=== PATIENT | male | born 1990 | race African-American/Black ===

== ENCOUNTER 2016-11-16 11:47 | Emergency (ER) | payer OTHER ==
[2016-11-16 11:54] VITALS: TEMP 97.8; BMI 29.7
[2016-11-16] MEDS ORDERED: ACETAMINOPHEN 1000 MG/100 ML VIAL (NON FORMULARY) IVPB ONE (13:03)
[2016-11-16] MEDS ORDERED: ACETAMINOPHEN INJECTION 100 ML IVPB ONE (13:07)
[2016-11-16 13:39] LABS: BASOPHIL 0.4 % (0-2.0); EOSINOPHIL 0.4 % (0-4.5); MCHC 32.1 g/dl (32.0-35.9); MEAN CELL VOLUME 84.1 fl (80-96); MEAN PLT VOLUME 9.3 fl (7.5-11.1); NEUTROPHILS 62.6 % (42.8-82.8); PLATELET COUNT 173 K/MM3 (134-434); RDW 14.3 % (11.9-15.9); WHITE BLOOD COUNT 9.4 K/mm3 (4.0-10.0)
[2016-11-16 13:41] LABS: URINE APPEARANCE SLCLOUDY; URINE BILIRUBIN NEGATIVE (NEGATIVE); URINE BLOOD 3+ (NEGATIVE); URINE COLOR YELLOW; URINE GLUCOSE (UA) NEGATIVE (NEGATIVE); URINE KETONE NEGATIVE (NEGATIVE); URINE LEUK ESTERASE TRACE (NEGATIVE); URINE NITRITE NEGATIVE (NEGATIVE); URINE PROTEIN NEGATIVE (NEGATIVE); URINE UROBILINOGEN NEGATIVE mg/dL (0.2-1.0)
[2016-11-16 13:52] LABS: INR 1.12 (0.82-1.09); PROTHROMBIN TIME (PATIENT) 12.3 SEC (9.98-11.88)
--- NOTE | 2016-11-16 13:53 | PDOC ---
History of Present Illness - General Chief Complaint: Hematuria Stated Complaint: FALL/ BACK PAIN, BLOOD IN URINE Time Seen by Provider: 11/16/16 12:24 History Source: Patient Exam Limitations: No Limitations - History of Present Illness Travel History: No Initial Comments: 11/16/16 13:56 26 y/o male presents to the ED with complaints of left flank pain. Patient states fell down steps onto the basement floor yesterday evening landing on his back. Patient states also scraped his right arm which brought him to a nearby ER yesterday we'll address the arm but since he had no complaints of back pain or hematuria there was no evaluation for the above. Patient states pain began this morning and passed dark urine this morning concerning for injury. Patient denies history of renal colic, passing of clots, penile discomfort, penile discharge, abdominal pain, nausea, or weakness. Timing/Duration: reports: constant Quality: reports: mild, dullness Abdominal Pain Onset Location: reports: flank (left) Pain Radiation: reports: no radiation Activities at Onset: reports: none Aggravating Factors: improves with: Movement Alleviating Factors: improves with: None Past History - Travel Traveled outside of the country in the last 30 days: No Close contact w/someone who was outside of country & ill: No - Past Medical History Allergies/Adverse Reactions: Allergies Allergy/AdvReac Type Severity Reaction Status Date / Time No Known Allergies Allergy Verified 11/16/16 11:49 Home Medications: Ambulatory Orders Fluticasone Prop 0.05% Nasal [Flonase -] 1 spray NS BID #1 spray.pump 10/15/15 Other medical history: none - Surgical History Abdominal Surgery: Yes (HERNIA) - Suicide/Smoking/Psychosocial Hx Smoking History: Current every day smoker Have you smoked in the past 12 months: Yes Number of Cigarettes Smoked Daily: 2 Information on smoking cessation initiated: Yes 'Breaking Loose' booklet given: 11/16/16 Hx Alcohol Use: No Drug/Substance Use Hx: No Substance Use Type: Marijuana Patient Lives Alone: No Lives with/in: spouse/SO Review of Systems - Review of Systems Able to Perform ROS?: Yes Constitutional: No: Symptoms Reported Respiratory: No: Symptoms reported Cardiac (ROS): No: Symptoms Reported ABD/GI: No: Symptoms Reported : Yes: Flank Pain, Hematuria Musculoskeletal: Yes: Back Pain Integumentary: Yes: Other (abrasion to right forearm) Neurological: No: Symptoms reported Hematologic/Lymphatic: No: Symptoms Reported *Physical Exam - Vital Signs Last Vital Signs Temp Pulse Resp BP Pulse Ox 97.8 F 95 H 18 103/74 100 11/16/16 11:51 11/16/16 11:51 11/16/16 11:51 11/16/16 11:51 11/16/16 11:51 - Physical Exam General Appearance: Yes: Nourished, Appropriately Dressed. No: Apparent Distress HEENT: negative: Pale Conjunctivae Neck: positive: Supple. negative: Tender, Decreased range of motion Respiratory/Chest: positive: Lungs Clear, Normal Breath Sounds. negative: Chest Tender, Respiratory Distress, Accessory Muscle Use Cardiovascular: positive: Regular Rhythm, Regular Rate. negative: Murmur Gastrointestinal/Abdominal: positive: Normal Bowel Sounds, Soft. negative: Distended, Tenderness Male Genitalia: positive: normal genitalia Musculoskeletal: positive: CVA Tenderness (L) (left flank) Extremity: positive: Normal Capillary Refill, Normal Range of Motion. negative : Normal Inspection (noted superficial abrasion over the lateral aspect of right forearm) Integumentary: positive: Other Neurologic: positive: Motor Strength 5/5 (ambulatory) ED Treatment Course - LABORATORY CBC & Chemistry Diagram: 11/16/16 13:30 11/16/16 13:30 - RADIOLOGY Radiology Studies Ordered: Category Date Time Status KIDNEY / RENAL US [US] Stat Ultrasound 11/16/16 13:03 Ordered - Medications Given in the ED: ED Medications Discontinued Medications Generic Name Dose Route Start Last Admin Trade Name Freq PRN Reason Stop Dose Admin Acetaminophen 1,000 mg 11/16/16 13:03 11/16/16 13:29 Ofirmev Injection - IVPB 11/16/16 13:04 1,000 mg ONCE ONE Administration Medical Decision Making - Medical Decision Making 11/16/16 13:06 Patient status post fall landing on his back yesterday now complaining of flank pain along with hematuria. Patient's exam had mild left flank tenderness along with left CVA tenderness. Patient was ordered for labs including CBC, comp urine , urine culture and ultrasound of the kidney. 11/16/16 14:06 Laboratory Tests 11/16/16 11/16/16 11/16/16 13:30 13:30 13:30 WBC 9.4 RBC 5.65 H Hgb 15.3 Hct 47.5 Plt Count 173 PT with INR 12.30 H BUN 14 Creatinine 0.9 AST 12 L ALT 19 Urine Blood Urine Urobilinogen Urine RBC Urine WBC 11/16/16 13:30 WBC RBC Hgb Hct Plt Count PT with INR BUN Creatinine AST ALT Urine Blood 3+ H Urine Urobilinogen Negative Urine RBC 43 Urine WBC 11 11/16/16 15:08 Ultrasound shows no acute findings with normal flow to the right and left renal vein. patient ordered for abdominal pelvic CT with IV contrast. Wound redressed to right forearm 11/16/16 16:32 CT shows no evidence of renal injury. Patient will be discharged home with supportive care instructions. *DC/Admit/Observation/Transfer Diagnosis at time of Disposition: Back pain Qualifiers: Chronicity: acute Back pain laterality: left Sciatica presence: without sciatica Hematuria Qualifiers: Hematuria type: unspecified type Qualified Code(s): R31.9 - Hematuria, unspecified - Discharge Dispostion Disposition: HOME Condition at time of disposition: Good - Patient Instructions Printed Discharge Instructions: DI for Hematuria Additional Instructions: May take Tylenol for discomfort. Drink plenty of fluids. If symptoms worsen please return to the nurse ED. Otherwise follow up with the primary care physician.
[2016-11-16 13:55] LABS: URINE HYALINE CAST 1 /lpf; URINE MUCUS RARE; URINE RBC 43 /hpf (0-3); URINE WBC 11 /hpf (3-5)
[2016-11-16 14:02] LABS: ALBUMIN 3.8 g/dl (3.4-5.0); ANION GAP 9 (8-16); BILIRUBIN,TOTAL 0.6 mg/dL (0.2-1.0); CALCIUM 8.9 mg/dL (8.5-10.1); CO2 27 mmol/L (21-32); CREATININE 0.9 mg/dL (0.7-1.3); GLUCOSE,RANDOM 89 mg/dL (74-106); SGOT/AST 12 U/L (15-37); SGPT/ALT 19 U/L (12-78); TOT PROT 6.5 g/dl (6.4-8.2)
[2016-11-16 14:03] LABS: ALK PHOS 75 U/L (45-117)
[2016-11-16 16:44] VITALS: BP 123/76; PULSE 77
== END 2016-11-16 16:44 | disposition home or self-care (01) ==
LOC: JER 11:47
DX: M54.5 Low back pain (principal); R31.9 Hematuria, unspecified; F17.210 Nicotine dependence, cigarettes, uncomplicated; S50.811A Abrasion of right forearm, initial encounter; W10.8XXA Fall (on) (from) other stairs and steps, initial encounter; Y93.89 Activity, other specified; Y92.018 Other place in single-family (private) house as the place of occurrence of the external cause; Y99.8 Other external cause status
CPT/HCPCS: 36415; 74177-TC; 76775-TC; 80053; 81003; 81015; 85025; 85610; 86850; 86900; 86901; 87086; 99283-25

== ENCOUNTER 2021-05-22 11:09 | Emergency (ER) | payer OTHER ==
[2021-05-22 11:29] VITALS: BP 128/80; PULSE 88; TEMP 97.5; BMI 34.4
[2021-05-22] MEDS ORDERED: TETRACAINE 0.5% HCL 0.6ML DROPPER.BOTTLE OU ONE (11:53)
[2021-05-22] MEDS ORDERED: FLUORESCEIN NA 1 EA STRIP OU ONE (11:54)
[2021-05-22] MEDS ORDERED: FLUORESCEIN NA 1 EA STRIP ONE (11:56)
[2021-05-22] MEDS ORDERED: TETRACAINE 0.5% OPHTH SOLN 2 ML BOTTLE ONE (11:56)
== END 2021-05-22 12:22 | disposition home or self-care (01) ==
LOC: JER 11:09
DX: G51.0 Bell's palsy (principal)
CPT/HCPCS: 99283-25

== ENCOUNTER 2022-12-12 02:03 | Emergency (ER) | payer OTHER ==
[2022-12-12] MEDS ORDERED: metroNIDAZOLE 250 MG TABLET PO ONE (02:33)
[2022-12-12] MEDS ORDERED: metroNIDAZOLE 250 MG TABLET ONE (02:36)
[2022-12-12 02:41] VITALS: BP 145/106; PULSE 97; RESP 20; TEMP 99.5; BMI 29.4
[2022-12-12] MEDS ORDERED: BUPIVACAINE HCL/PF 0.5% (5MG/ML) 10 ML VIAL ONE (03:05)
[2022-12-12] MEDS ORDERED: BUPIVACAINE HCL/PF 0.5% (5 MG/ML) 30 ML VIAL IJ ONE (03:06)
== END 2022-12-12 03:54 | disposition home or self-care (01) ==
LOC: JER 02:03
DX: K08.89 Other specified disorders of teeth and supporting structures (principal)
CPT/HCPCS: 99283-25